=== PATIENT | male | born 1980 | race African-American/Black ===

== ENCOUNTER 2023-08-04 14:29 | Emergency (ER) | payer OTHER ==
[~2023-08-04] VITALS: Ht 182.9 cm; Wt 77.0 kg
[2023-08-04 14:33] VITALS: O2SAT 98
[2023-08-04 16:39] VITALS: BP 138/80; PULSE 86; RESP 14; TEMP 98.6
== END 2023-08-04 16:41 | disposition home or self-care (01) ==
LOC: ER 15:08
DX: S86.029 Laceration of unspecified Achilles tendon (principal); X58.XXXD Exposure to other specified factors, subsequent encounter
CPT/HCPCS: 99281; Z7610

== ENCOUNTER 2023-09-02 13:49 | Emergency (ER) | payer OTHER ==
[~2023-09-02] VITALS: Ht 177.8 cm; Wt 77.0 kg
[2023-09-02 14:00] VITALS: BP 132/77; PULSE 87; RESP 18; TEMP 98.9; O2SAT 99
== END 2023-09-02 14:48 | disposition home or self-care (01) ==
LOC: ER 13:49
DX: S86.012A Strain of left Achilles tendon, initial encounter (principal); F41.9 Anxiety disorder, unspecified; X58.XXXA Exposure to other specified factors, initial encounter; Y93.89 Activity, other specified; Y92.89 Other specified places as the place of occurrence of the external cause; Y99.8 Other external cause status
CPT/HCPCS: 99281